=== PATIENT | male | born 1950 | race Caucasian/White ===

== ENCOUNTER → 2016-10-30 | Outpatient (REF) | payer MEDICARE ==
[~2016-10-30] MED LIST: GLUCTAB6 PO; HYDR200T3 PO; LISI30TA4 PO; PREV30CA11 PO; VITA500046 PO
[2016-10-30 16:44] LABS: ALBUMIN 3.6 GM/DL (3.2-5.2); ALBUMIN/GLOBULIN RATIO 1.03 (1.00-1.93); BILIRUBIN,TOTAL 0.5 MG/DL (0.2-1.0); CALCIUM LEVEL 8.8 MG/DL (8.8-10.2); CREATININE FOR GFR 1.38 MG/DL (0.70-1.30); GLOMERULAR FILTRATION RATE 54.5 (>49); POTASSIUM SERUM 4.5 MEQ/L (3.5-5.1); TOTAL PROTEIN 7.1 GM/DL (6.4-8.2)
== END ==
LOC: M LABDRAW1 15:40
PROVIDERS: ATTEND Emergency Medicine
DX: I10 Essential (primary) hypertension (principal); E55.9 Vitamin D deficiency, unspecified

== ENCOUNTER → 2016-11-28 | Outpatient (CLI) | payer MEDICARE ==
[~2016-11-28] VITALS: Ht 172.7 cm; Wt 76.2 kg
[~2016-11-28] MED LIST changes: +ALLO100T PO; +LIDOCAINE 2% INJ 100 MG/5 ML SDV (FOR ANES.) As Ordered ONE; +MULT1TAB18 PO; +PHENYLephrine HCL 500 MCG/5 ML (100MCG/ML) SYRINGE (J2370) As Ordered ONE; +PROPOFOL 200 MG/20 ML VIAL As Ordered ONE; +VITA-113 SL
[2016-11-28] MEDS: NS 1,000 ML IV SCH (09:09)
--- NOTE | 2016-11-28 09:40 | ROOR ---
Patient Name: Ben Domingo Procedure Date: 11/28/2016 9:26 AM Date of : 1950 Age: 66 Room: [facility] Gender: Male Note Status: Finalized Procedure: Upper GI endoscopy + Biopsies Indications: Follow-up of Hernandez's esophagus Providers: Aldo Davila MD Referring MD: PALMA MANDEL MD Requesting Provider: Medicines: Monitored Anesthesia Care Complications: No immediate complications. Procedure: Pre-Anesthesia Assessment: - The heart rate, respiratory rate, oxygen saturations, blood pressure, adequacy of pulmonary ventilation, and response to care were monitored throughout the procedure. The Endoscope was introduced through the mouth, and advanced to the second part of duodenum. The upper GI endoscopy was accomplished without difficulty. The patient tolerated the procedure well. Findings: The Z-line was variable and was found 40 cm from the incisors. Multiple biopsies were obtained with cold forceps for evaluation to rule out Hernandez's Esophagus randomly at the gastroesophageal junction. A small hiatal hernia was present. No other significant abnormalities were identified in a careful examination of the stomach. The exam of the duodenum was otherwise normal. Impression: - Z-line variable, 40 cm from the incisors. - Small hiatal hernia. - Multiple biopsies were obtained at the gastroesophageal junction. - The examination was otherwise normal. Recommendation: - Patient has a contact number available for emergencies. The signs and symptoms of potential delayed complications were discussed with the patient. Return to normal activities tomorrow. Written discharge instructions were provided to the patient. - High fiber diet. - Discharge patient to home. - Continue present medications. - Await pathology results. - Telephone GI clinic for pathology results in 1 week. - Return to referring physician. - Repeat upper endoscopy in 3 years for surveillance based on pathology results. - The findings and recommendations were discussed with the patient's family. Aldo Davila MD Aldo aDvila MD 11/28/2016 9:39:40 AM This report has been signed electronically. Number of Addenda: 0 Note Initiated On: 11/28/2016 9:26 AM Estimated Blood Loss: Estimated blood loss: none.
--- NOTE | 2016-11-28 09:58 | ROOR ---
Patient Name: Ben Domingo Procedure Date: 11/28/2016 9:26 AM Date of : 1950 Age: 66 Room: [facility] Gender: Male Note Status: Finalized Procedure: Colonoscopy to Cecum + Cold Snare Polypectomy Indications: High risk colon cancer surveillance: Personal history of colonic polyps, Last colonoscopy: 2012 Providers: Aldo Davila MD Referring MD: PALMA MANDEL MD Requesting Provider: Medicines: Monitored Anesthesia Care Complications: No immediate complications. Procedure: Pre-Anesthesia Assessment: - The heart rate, respiratory rate, oxygen saturations, blood pressure, adequacy of pulmonary ventilation, and response to care were monitored throughout the procedure. The Colonoscope was introduced through the anus and advanced to the cecum, identified by appendiceal orifice and ileocecal valve. The colonoscopy was performed without difficulty. The patient tolerated the procedure well. The quality of the bowel preparation was excellent. Findings: The perianal and digital rectal examinations were normal. Non-bleeding internal hemorrhoids were found during retroflexion. The hemorrhoids were small and Grade I (internal hemorrhoids that do not prolapse). Scattered small-mouthed diverticula were found in the recto-sigmoid colon, sigmoid colon and descending colon. A small polyp was found at 60 cm proximal to the anus. The polyp was sessile. The polyp was removed with a cold snare. Resection and retrieval were complete. The exam was otherwise without abnormality on direct and retroflexion views. Impression: - Non-bleeding internal hemorrhoids. - Diverticulosis in the recto-sigmoid colon, in the sigmoid colon and in the descending colon. - One small polyp at 60 cm proximal to the anus, removed with a cold snare. Resected and retrieved. - The examination was otherwise normal on direct and retroflexion views. - The exam was otherwise normal to the cecum. Recommendation: - Patient has a contact number available for emergencies. The signs and symptoms of potential delayed complications were discussed with the patient. Return to normal activities tomorrow. Written discharge instructions were provided to the patient. - High fiber diet. - Discharge patient to home. - Continue present medications. - Await pathology results. - Telephone GI clinic for pathology results in 1 week. - Repeat colonoscopy in 5 years for surveillance based on pathology results. - Return to referring physician. - The findings and recommendations were discussed with the patient's family. Aldo Davila MD Aldo Davila MD 11/28/2016 9:58:17 AM This report has been signed electronically. Number of Addenda: 0 Note Initiated On: 11/28/2016 9:26 AM Estimated Blood Loss: Estimated blood loss: none.
[2016-11-28 10:15] VITALS: BP 156/83
== END ==
LOC: M OPP 08:59
PROVIDERS: ATTEND Internal Medicine Gastroenterology
DX: Z12.11 Encounter for screening for malignant neoplasm of colon (principal); K64.0 First degree hemorrhoids; K57.30 Diverticulosis of large intestine without perforation or abscess without bleeding; D12.4 Benign neoplasm of descending colon; K22.70 Barrett's esophagus without dysplasia; K22.8 Other specified diseases of esophagus; K44.9 Diaphragmatic hernia without obstruction or gangrene; I12.9 Hypertensive chronic kidney disease with stage 1 through stage 4 chronic kidney disease, or unspecified chronic kidney disease; E78.00 Pure hypercholesterolemia, unspecified; M19.90 Unspecified osteoarthritis, unspecified site; N18.3 Chronic kidney disease, stage 3 (moderate); K90.0 Celiac disease; Z87.891 Personal history of nicotine dependence; Z79.899 Other long term (current) drug therapy; Z88.8 Allergy status to other drugs, medicaments and biological substances
CPT/HCPCS: 43239; 45385; 88305; 99156; J2370

== ENCOUNTER → 2017-08-09 | Outpatient (CLI) | payer MEDICARE ==
[~2017-08-09] MED LIST changes: -LIDOCAINE 2% INJ 100 MG/5 ML SDV (FOR ANES.) As Ordered ONE; -PHENYLephrine HCL 500 MCG/5 ML (100MCG/ML) SYRINGE (J2370) As Ordered ONE; +PREV1CAP PO; -PREV30CA11 PO; -PROPOFOL 200 MG/20 ML VIAL As Ordered ONE
[2017-08-09 13:27] LABS: BASO # 0.1 10^3/uL (0.0-0.2); BASO % 0.9 % (0.0-1.0); EOS # 0.2 10^3/uL (0.0-0.50); EOS % 4.2 % (0.0-3.0); IMMATURE GRANULOCYTE % 0.9 % (0-0); LYMPH # 1.1 10^3/uL (1.5-4.5); LYMPH % 19.4 % (24.0-44.0); MEAN CORPUSCULAR HEMOGLOBIN 30.6 pg (27.0-33.0); MEAN CORPUSCULAR HGB CONC 33.8 g/dl (32.0-36.5); MEAN CORPUSCULAR VOLUME 90.5 fl (80.0-96.0); MONO # 0.8 10^3/uL (0.0-0.8); MONO % 13.2 % (0.0-5.0); NEUTROPHILS # 3.5 10^3/uL (1.8-7.7); NEUTROPHILS % 61.4 % (36.0-66.0); PLATELET COUNT, AUTOMATED 130 10^3/uL (150-450); RED CELL DISTRIBUTION WIDTH 15.1 % (11.5-14.5); WHITE BLOOD COUNT 5.7 10^3/uL (4.0-10.0)
[2017-08-09 15:05] LABS: ALBUMIN 3.4 GM/DL (3.2-5.2); CALCIUM LEVEL 9.3 MG/DL (8.8-10.2); CREATININE FOR GFR 1.44 MG/DL (0.70-1.30); GLOMERULAR FILTRATION RATE 51.8 (>49); POTASSIUM SERUM 4.7 MEQ/L (3.5-5.1); URIC ACID 5.2 MG/DL (3.5-7.2)
== END ==
LOC: M SMT 10:16
PROVIDERS: ATTEND Internal Medicine Nephrology
DX: N18.3 Chronic kidney disease, stage 3 (moderate) (principal); M10.9 Gout, unspecified; I10 Essential (primary) hypertension

== ENCOUNTER → 2017-10-18 | Outpatient (REF) | payer MEDICARE ==
[2017-10-18 12:56] LABS: ALBUMIN 3.4 GM/DL (3.2-5.2); ALBUMIN/GLOBULIN RATIO 0.83 (1.00-1.93); ALKALINE PHOSPHATASE 246 U/L (45-117); ALT/SGPT 51 U/L (12-78); ANION GAP 5 MEQ/L (8-16); AST/SGOT 52 U/L (7-37); BILIRUBIN,TOTAL 0.6 MG/DL (0.2-1.0); BLOOD UREA NITROGEN 22 MG/DL (7-18); CALCIUM LEVEL 8.7 MG/DL (8.8-10.2); CARBON DIOXIDE LEVEL 28 MEQ/L (21-32); CHLORIDE LEVEL 108 MEQ/L (98-107); CHOLESTEROL LEVEL 161 MG/DL (<200); CREATININE FOR GFR 1.17 MG/DL (0.70-1.30); GLOMERULAR FILTRATION RATE > 60.0 (>49); GLUCOSE, FASTING 102 MG/DL (80-110); POTASSIUM SERUM 4.1 MEQ/L (3.5-5.1); SODIUM LEVEL 141 MEQ/L (136-145); TOTAL PROTEIN 7.5 GM/DL (6.4-8.2); TRIGLYCERIDES LEVEL 53 MG/DL (<150)
== END ==
LOC: M LABDRAW1 11:11
DX: I10 Essential (primary) hypertension (principal); E55.9 Vitamin D deficiency, unspecified
CPT/HCPCS: 84443

== ENCOUNTER → 2018-11-05 | Outpatient (REF) | payer MEDICARE, OTHER ==
[~2018-11-05] MED LIST changes: +LISI-672 PO; -LISI30TA4 PO
[2018-11-05 12:23] LABS: ALBUMIN 3.5 GM/DL (3.2-5.2); BILIRUBIN,TOTAL 1.2 MG/DL (0.2-1.0); CALCIUM LEVEL 8.8 MG/DL (8.8-10.2); CHOLESTEROL RISK RATIO 4.384 (<5); CREATININE FOR GFR 1.28 MG/DL (0.70-1.30); GLOMERULAR FILTRATION RATE 59.1 (>42); POTASSIUM SERUM 4.3 MEQ/L (3.5-5.1); TOTAL PROTEIN 7.7 GM/DL (6.4-8.2)
[2018-11-05 12:29] LABS: TOTAL 25(OH) VITAMIN D 39.2 NG/ML (30.0-100.0)
== END ==
LOC: M LABDRAW1 11:24
PROVIDERS: ATTEND Physician Assistant
DX: I10 Essential (primary) hypertension (principal); E55.9 Vitamin D deficiency, unspecified

== ENCOUNTER → 2019-01-06 | Outpatient (REF) | payer OTHER ==
[2019-01-06 14:21] LABS: BASO % 0.7 % (0.0-1.0); EOS # 0.2 10^3/uL (0.0-0.50); EOS % 4.3 % (0.0-3.0); HEMOGLOBIN 13.6 g/dl (13.5-17.5); LYMPH # 0.9 10^3/uL (1.5-4.5); LYMPH % 20.8 % (24.0-44.0); MEAN CORPUSCULAR HEMOGLOBIN 32.2 pg (27.0-33.0); MEAN CORPUSCULAR VOLUME 94.8 fl (80.0-96.0); MONO # 0.4 10^3/uL (0.0-0.8); MONO % 9.8 % (0.0-5.0); NEUTROPHILS # 2.8 10^3/uL (1.8-7.7); NEUTROPHILS % 63.5 % (36.0-66.0); RED BLOOD COUNT 4.22 10^6/uL (4.30-6.10); WHITE BLOOD COUNT 4.4 10^3/uL (4.0-10.0)
[2019-01-06 15:11] LABS: PLATELET COUNT, AUTOMATED 85 10^3/uL (150-450)
== END ==
LOC: M LABDRAW1 13:34
PROVIDERS: ATTEND Physician Assistant
DX: K62.5 Hemorrhage of anus and rectum (principal)

== ENCOUNTER → 2019-06-01 | Outpatient (REF) | payer OTHER ==
[2019-06-01 12:41] LABS: ALBUMIN 3.7 GM/DL (3.2-5.2); BILIRUBIN,TOTAL 0.7 MG/DL (0.2-1.0); CALCIUM LEVEL 9.3 MG/DL (8.8-10.2); CREATININE FOR GFR 1.47 MG/DL (0.70-1.30); GLOMERULAR FILTRATION RATE 50.3 (>42); POTASSIUM SERUM 4.8 MEQ/L (3.5-5.1); TOTAL PROTEIN 7.9 GM/DL (6.4-8.2)
== END ==
LOC: M LABDRAW1 10:24
PROVIDERS: ATTEND Physician Assistant
DX: I10 Essential (primary) hypertension (principal)

== ENCOUNTER → 2019-12-09 | Outpatient (REF) | payer OTHER ==
[2019-12-09 14:16] LABS: BASO % 0.9 % (0.0-1.0); EOS # 0.2 10^3/uL (0.0-0.5); EOS % 5.7 % (0.0-3.0); HEMATOCRIT 37.3 % (42.0-52.0); HEMOGLOBIN 12.5 g/dl (13.5-17.5); LYMPH # 0.9 10^3/uL (1.5-5.0); LYMPH % 26.6 % (24.0-44.0); MEAN CORPUSCULAR HGB CONC 33.5 g/dl (32.0-36.5); MEAN CORPUSCULAR VOLUME 95.4 fl (80.0-96.0); MONO # 0.3 10^3/uL (0.0-0.8); NEUTROPHILS # 1.9 10^3/uL (1.5-8.5); NEUTROPHILS % 56.6 % (36.0-66.0); RED BLOOD COUNT 3.91 10^6/uL (4.30-6.10); WHITE BLOOD COUNT 3.4 10^3/uL (4.0-10.0)
[2019-12-09 14:17] LABS: PLATELET COUNT, AUTOMATED 88 10^3/uL (150-450)
[2019-12-09 14:35] LABS: ALBUMIN 3.4 GM/DL (3.2-5.2); BILIRUBIN,TOTAL 1.2 MG/DL (0.2-1.0); CALCIUM LEVEL 8.7 MG/DL (8.8-10.2); CHOLESTEROL RISK RATIO 3.326 (<5); CREATININE FOR GFR 1.27 MG/DL (0.70-1.30); GLOMERULAR FILTRATION RATE 59.5 (>42); POTASSIUM SERUM 4.2 MEQ/L (3.5-5.1); TOTAL PROTEIN 7.7 GM/DL (6.4-8.2); URIC ACID 5.2 MG/DL (3.5-7.2)
[2019-12-09 14:42] LABS: TOTAL 25(OH) VITAMIN D 47.5 NG/ML (30.0-100.0)
== END ==
LOC: M LABDRAW1 13:26
PROVIDERS: ATTEND Physician Assistant
DX: N18.3 Chronic kidney disease, stage 3 (moderate) (principal); E55.9 Vitamin D deficiency, unspecified; I10 Essential (primary) hypertension; M10.9 Gout, unspecified; M05.70 Rheumatoid arthritis with rheumatoid factor of unspecified site without organ or systems involvement

== ENCOUNTER → 2020-07-04 | Outpatient (REF) | payer MEDICARE ==
[~2020-07-04] MED LIST changes: +ATOR40TA75 PO; +CIME300T91 PO; +D31000TA2 PO; +FAMO20TA PO; +FLON1SPR; +FURO20TA2 PO; +HM V5000 PO; +HYDR-3713 PO; -LISI-672 PO; +LISI30TA4 PO; +MONT10TA4 PO; +MULTCAP PO; +PROAAER10 INH; +SPIR12.9 INH
[2020-07-04 18:59] LABS: PERCENT SATURATION 10.8 % (19.7-50.0)
== END ==
LOC: M LAB REF 17:13
PROVIDERS: ATTEND Internal Medicine Nephrology
DX: D50.9 Iron deficiency anemia, unspecified (principal)

== ENCOUNTER → 2020-08-12 | Outpatient (CLI) | payer MEDICARE | LOC: M LABSMTC 10:53 | PROVIDERS: ATTEND Anesthesiology | DX: Z01.818 Encounter for other preprocedural examination (principal); Z20.828 Contact with and (suspected) exposure to other viral communicable diseases | CPT/HCPCS: C9803; U0003 ==

== ENCOUNTER → 2020-08-15 | Outpatient (REF) | payer MEDICARE ==
[2020-08-15 18:20] LABS: PERCENT SATURATION 26.3 % (19.7-50.0)
== END ==
LOC: M LAB REF 17:05
PROVIDERS: ATTEND Internal Medicine Nephrology
DX: D50.9 Iron deficiency anemia, unspecified (principal)

== ENCOUNTER 2020-08-17 09:19 | Day surgery (SDC) | payer MEDICARE ==
[~2020-08-17] VITALS: Ht 172.7 cm; Wt 69.9 kg
[~2020-08-17 09:19] MED LIST changes: +NS 1,000 ML IV ONE
--- NOTE | 2020-08-17 10:17 | ROOR ---
Patient Name: Ben Domingo Procedure Date: 08/17/2020 9:59 AM Date of : 1950 Age: 70 Room: [facility] Gender: Male Note Status: Finalized Procedure: Upper Endoscopy + Biopsies Indications: Iron deficiency anemia, Unexplained iron deficiency anemia Providers: Aldo Davila MD Referring MD: Andreea Arreaga MD Requesting Provider: Medicines: Monitored Anesthesia Care Complications: No immediate complications. Procedure: Pre-Anesthesia Assessment: - The heart rate, respiratory rate, oxygen saturations, blood pressure, adequacy of pulmonary ventilation, and response to care were monitored throughout the procedure. The Endoscope was introduced through the mouth, and advanced to the second part of duodenum. The upper GI endoscopy was accomplished without difficulty. The patient tolerated the procedure well. Findings: The Z-line was irregular and was found 35 cm from the incisors. Multiple biopsies were obtained with cold forceps for evaluation to rule out Hernandez's Esophagus randomly at the gastroesophageal junction. A medium-sized hiatal hernia was present. Three columns of non-bleeding grade II varices were found in the entire esophagus,. No stigmata of recent bleeding were evident and no red philomena signs were present. No other significant abnormalities were identified in a careful examination of the stomach. Biopsies were taken with a cold forceps in the gastric antrum for Helicobacter pylori testing. The exam of the duodenum was otherwise normal. Biopsies for histology were taken with a cold forceps in the first portion of the duodenum for evaluation of celiac disease. The exam was otherwise without abnormality. Impression: - Z-line irregular, 35 cm from the incisors. - Medium-sized hiatal hernia. - Non-bleeding grade II esophageal varices. - The examination was otherwise normal. - Multiple biopsies were obtained at the gastroesophageal junction. - Biopsies were taken with a cold forceps for Helicobacter pylori testing. - Biopsies were taken with a cold forceps for evaluation of celiac disease. - The examination was otherwise normal. Recommendation: - Patient has a contact number available for emergencies. The signs and symptoms of potential delayed complications were discussed with the patient. Return to normal activities tomorrow. Written discharge instructions were provided to the patient. - Resume previous diet. - Discharge patient to home. - Follow an antireflux regimen. - Continue present medications. - Await pathology results. - Telephone GI clinic for pathology results in 1 week. - Return to referring physician. - The findings and recommendations were discussed with the patient. Aldo Davila MD Aldo Davila MD 08/17/2020 10:16:39 AM Electronically signed by Aldo Davila MD Number of Addenda: 0 Note Initiated On: 08/17/2020 9:59 AM Estimated Blood Loss: Estimated blood loss: none.
--- NOTE | 2020-08-17 10:53 | ROOR ---
Patient Name: Ben Domingo Procedure Date: 08/17/2020 10:00 AM Date of : 1950 Age: 70 Room: [facility] Gender: Male Note Status: Finalized Procedure: Total Colonoscopy to Cecum + Cold Snare Polypectomy + Hemoclip Indications: Unexplained iron deficiency anemia Providers: Aldo Davila MD Referring MD: Andreea Arreaga MD Requesting Provider: Medicines: Monitored Anesthesia Care Complications: No immediate complications. Procedure: Pre-Anesthesia Assessment: - The heart rate, respiratory rate, oxygen saturations, blood pressure, adequacy of pulmonary ventilation, and response to care were monitored throughout the procedure. The Colonoscope was introduced through the anus and advanced to the cecum, identified by appendiceal orifice and ileocecal valve. The colonoscopy was performed without difficulty. The patient tolerated the procedure well. The quality of the bowel preparation was excellent. Findings: The perianal and digital rectal examinations were normal. Non-bleeding internal hemorrhoids were found during retroflexion. The hemorrhoids were small and Grade I (internal hemorrhoids that do not prolapse). Multiple small and large-mouthed diverticula were found in the recto-sigmoid colon, sigmoid colon and descending colon. A medium polyp was found at 60 cm proximal to the anus. The polyp was sessile. The polyp was removed with a cold snare. Resection and retrieval were complete. To prevent bleeding after the polypectomy, one hemostatic clip was successfully placed (MR conditional). There was no bleeding at the end of the procedure. The exam was otherwise without abnormality on direct and retroflexion views. Impression: - Non-bleeding internal hemorrhoids. - Diverticulosis in the recto-sigmoid colon, in the sigmoid colon and in the descending colon. - One medium polyp at 60 cm proximal to the anus, removed with a cold snare. Resected and retrieved. Clip (MR conditional) was placed. - The examination was otherwise normal on direct and retroflexion views. - The exam was otherwise normal to the cecum. Recommendation: - Patient has a contact number available for emergencies. The signs and symptoms of potential delayed complications were discussed with the patient. Return to normal activities tomorrow. Written discharge instructions were provided to the patient. - High fiber diet. - Discharge patient to home. - Continue present medications. - Await pathology results. - Telephone GI clinic for pathology results in 1 week. - Repeat colonoscopy for surveillance based on pathology results. - Return to referring physician. - The findings and recommendations were discussed with the patient. Aldo Davila MD Aldo Davila MD 08/17/2020 10:52:25 AM Electronically signed by Aldo Davila MD Number of Addenda: 0 Note Initiated On: 08/17/2020 10:00 AM Estimated Blood Loss: Estimated blood loss: none.
[2020-08-17] MEDS ORDERED: propofoL 200 MG/20 ML VIAL As Ordered ONE (10:55)
[2020-08-17] MEDS ORDERED: LIDOCAINE 2% 100MG/5ML SDV (FOR ANES.) As Ordered ONE (10:55)
[2020-08-17 11:15] VITALS: BP 122/56
== END 2020-08-17 11:55 | disposition home or self-care (01) ==
LOC: M OPP 09:19
PROVIDERS: ATTEND Internal Medicine Gastroenterology
DX: D12.2 Benign neoplasm of ascending colon (principal); K64.0 First degree hemorrhoids; K57.30 Diverticulosis of large intestine without perforation or abscess without bleeding; D50.9 Iron deficiency anemia, unspecified; Z86.010 Personal history of colon polyps; K22.8 Other specified diseases of esophagus; K44.9 Diaphragmatic hernia without obstruction or gangrene; I85.00 Esophageal varices without bleeding; Z87.19 Personal history of other diseases of the digestive system; Z79.891 Long term (current) use of opiate analgesic; Z79.899 Other long term (current) drug therapy; Z88.8 Allergy status to other drugs, medicaments and biological substances; F17.210 Nicotine dependence, cigarettes, uncomplicated

== ENCOUNTER → 2020-09-22 | Outpatient (CLI) | payer MEDICARE ==
[~2020-09-22] MED LIST changes: -MONT10TA4 PO; +MONT5TAB2 PO; -NS 1,000 ML IV ONE
[2020-09-22 15:08] LABS: BASO % 0.6 % (0.0-1.0); EOS # 0.2 10^3/uL (0.0-0.5); EOS % 4.1 % (0.0-3.0); HEMATOCRIT 35.6 % (42.0-52.0); HEMOGLOBIN 11.8 g/dl (13.5-17.5); LYMPH % 21.6 % (24.0-44.0); MEAN CORPUSCULAR HEMOGLOBIN 32.6 pg (27.0-33.0); MEAN CORPUSCULAR HGB CONC 33.1 g/dl (32.0-36.5); MEAN CORPUSCULAR VOLUME 98.3 fl (80.0-96.0); MONO # 0.6 10^3/uL (0.0-0.8); MONO % 13.2 % (0.0-5.0); NEUTROPHILS # 2.8 10^3/uL (1.5-8.5); NEUTROPHILS % 60.1 % (36.0-66.0); PLATELET COUNT, AUTOMATED 100 10^3/uL (150-450); RED BLOOD COUNT 3.62 10^6/uL (4.30-6.10); WHITE BLOOD COUNT 4.6 10^3/uL (4.0-10.0)
[2020-09-22 17:18] LABS: CALCIUM LEVEL 9.1 MG/DL (8.8-10.2); CREATININE FOR GFR 2.54 MG/DL (0.70-1.30); GLOMERULAR FILTRATION RATE 26.7 (>42); POTASSIUM SERUM 4.6 MEQ/L (3.5-5.1)
[2020-09-22 17:19] LABS: BILIRUBIN,TOTAL 0.9 MG/DL (0.2-1.0); TOTAL PROTEIN 7.5 GM/DL (6.4-8.2)
== END ==
LOC: M PLALAB 11:26
PROVIDERS: ATTEND Internal Medicine Gastroenterology
DX: D64.89 Other specified anemias (principal)

== ENCOUNTER 2020-10-27 16:31 | Emergency (ER) | payer MEDICARE ==
[~2020-10-27] VITALS: Ht 175.3 cm; Wt 70.5 kg
[~2020-10-27 16:31] MED LIST changes: +MONT10TA10 PO; -MONT5TAB2 PO
--- NOTE | 2020-10-27 19:48 | REP ---
INDICATION: wpund with swelling, concern for osteo COMPARISON: None. TECHNIQUE: AP, lateral, bilateral oblique views. FINDINGS: Soft tissue swelling with suspected open wound along the lateral aspect of the distal fibula. Osseous structures demonstrate osteopenia and degenerative changes without obvious acute fracture or dislocation. IMPRESSION: Soft tissue swelling with open wound/ulcer. No obvious acute fracture or dislocation. <Electronically signed by Moises Tenorio > 10/27/201943
--- NOTE | 2020-10-27 19:49 | REP ---
INDICATION: wound with swelling, concern for osteo COMPARISON: None. TECHNIQUE: AP and lateral views of the left tibia/fibula. FINDINGS: Osteopenia and arthritic degenerative changes. No obvious acute fracture or dislocation. IMPRESSION: Osteopenia and degenerative changes. No acute fracture or dislocation. <Electronically signed by Moises Tenorio > 10/27/201945
[2020-10-27 20:10] LABS: BASO % 0.8 % (0.0-1.0); EOS # 0.2 10^3/uL (0.0-0.5); EOS % 4.3 % (0.0-3.0); HEMOGLOBIN 11.3 g/dl (13.5-17.5); LYMPH # 1.2 10^3/uL (1.5-5.0); LYMPH % 24.5 % (24.0-44.0); MEAN CORPUSCULAR HEMOGLOBIN 32.9 pg (27.0-33.0); MEAN CORPUSCULAR HGB CONC 33.2 g/dl (32.0-36.5); MEAN CORPUSCULAR VOLUME 99.1 fl (80.0-96.0); MONO # 0.5 10^3/uL (0.0-0.8); MONO % 10.2 % (0.0-5.0); NEUTROPHILS # 2.9 10^3/uL (1.5-8.5); NEUTROPHILS % 59.4 % (36.0-66.0); RED BLOOD COUNT 3.43 10^6/uL (4.30-6.10); WHITE BLOOD COUNT 4.9 10^3/uL (4.0-10.0)
[2020-10-27 20:14] LABS: PLATELET COUNT, AUTOMATED 92 10^3/uL (150-450)
[2020-10-27 20:37] LABS: ALBUMIN 3.2 GM/DL (3.2-5.2); BILIRUBIN,DIRECT 0.4 MG/DL (0.0-0.2); BILIRUBIN,TOTAL 1.3 MG/DL (0.2-1.0); C REACTIVE PROTEIN QUANTITATIV 0.81 MG/DL (0.00-0.30); TOTAL PROTEIN 7.5 GM/DL (6.4-8.2)
[2020-10-27 20:43] LABS: ERYTHROCYTE SEDIMENTATION RATE 63 mm/hr (0-20)
[2020-10-27] MEDS ORDERED: KEFL500C17 PO (20:43)
[2020-10-27] MEDS ORDERED: cefTRIAXone SOD 1 GM in D5W MINI-BAG PLUS 50 ML IV ONE (20:45)
[2020-10-27 21:48] VITALS: BP 144/66
== END 2020-10-27 21:49 | disposition home or self-care (01) ==
LOC: M ED 16:31
DX: L03.116 Cellulitis of left lower limb (principal); L98.499 Non-pressure chronic ulcer of skin of other sites with unspecified severity; J45.909 Unspecified asthma, uncomplicated; I12.9 Hypertensive chronic kidney disease with stage 1 through stage 4 chronic kidney disease, or unspecified chronic kidney disease; N18.30 Chronic kidney disease, stage 3 unspecified; M10.9 Gout, unspecified; R91.1 Solitary pulmonary nodule; K22.70 Barrett's esophagus without dysplasia; Z79.899 Other long term (current) drug therapy; Z88.8 Allergy status to other drugs, medicaments and biological substances
CPT/HCPCS: 73590; 73610; 80047; 80076; 85025; 85049; 85055; 85652; 86140; 87040; 96365; 99283; J0696

== ENCOUNTER → 2020-12-12 | Outpatient (CLI) | payer MEDICARE ==
[~2020-12-12] MED LIST changes: +KEFL500C17 PO
--- NOTE | 2020-12-12 17:11 | REP ---
INDICATION: [id number] MASS UNDER LEFT NIPPLE. Present for the last 3-4 weeks. COMPARISON: No comparison breast imaging. TECHNIQUE: Bilateral CC and MLO) view(s) were taken. 3D tomography was carried out bilaterally. Targeted bilateral subareolar breast sonography was performed. FINDINGS: Craniocaudal and mediolateral oblique views of the left breast demonstrate a gynecomastia pattern with mild amount of of fibroglandular density in the subareolar zone on the left. No masslike properties are seen. No microcalcification or spiculation is noted. No worrisome skin change. No abnormality noted radiographically on the right. Targeted subareolar sonography findings. Bilateral retroareolar scanning is performed. In the subareolar region of the left breast there is a hypoechoic area consistent with irregular margins consistent with fibroglandular tissue. No mass or acoustic shadowing is seen. The area in question measures 1.9 x 1.3 x 0.6 cm. Subareolar scanning on the right shows no abnormality. IMPRESSION: BI-RADS category 2 benign findings. Unilateral mild left-sided gynecomastia. Clinical follow-up is advised. This mammogram was interpreted with the aid of an FDA-approved computer-aided detection system. The patient states he had a clinical breast exam in November of 2020. The patient letter being requested is male patient letter M 2. RECOMMENDATION: Clinical follow-up is advised.. <Electronically signed by Adonay Spencer > 12/12/20 0037
== END ==
LOC: M WHC 14:20
PROVIDERS: ATTEND Nurse Practitioner Family
DX: N62 Hypertrophy of breast (principal); R22.2 Localized swelling, mass and lump, trunk
CPT/HCPCS: 76642; 77066; G0279

== ENCOUNTER → 2021-01-23 | Outpatient (CLI) | payer MEDICARE ==
--- NOTE | 2021-01-23 19:11 | REP ---
INDICATION: Cirrhosis of the liver. COMPARISON: 04/09/2007. TECHNIQUE: CT abdomen and pelvis without contrast. FINDINGS: This is an addendum to the CT performed at [facility] dated 12/15/2020. In the body of the report there is typographical error stating that there is ascites. There is in fact no ascites present in the abdomen or pelvis. IMPRESSION: No ascites present in the abdomen or pelvis. <Electronically signed by Rodrigue Villatoro > 01/23/21 0760
== END ==
LOC: M RAD 14:06
PROVIDERS: ATTEND Internal Medicine Gastroenterology
DX: K74.60 Unspecified cirrhosis of liver (principal)

== ENCOUNTER → 2021-07-18 | Outpatient (CLI) | payer MEDICARE ==
[2021-07-18 15:16] LABS: BASO % 0.7 % (0.0-1.0); EOS # 0.2 10^3/uL (0.0-0.5); EOS % 5.4 % (0.0-3.0); HEMATOCRIT 31.1 % (42.0-52.0); HEMOGLOBIN 10.7 g/dl (13.5-17.5); LYMPH # 1.1 10^3/uL (1.5-5.0); LYMPH % 28.1 % (24.0-44.0); MEAN CORPUSCULAR HEMOGLOBIN 34.9 pg (27.0-33.0); MEAN CORPUSCULAR HGB CONC 34.4 g/dl (32.0-36.5); MEAN CORPUSCULAR VOLUME 101.3 fl (80.0-96.0); MONO # 0.4 10^3/uL (0.0-0.8); MONO % 8.6 % (2.0-8.0); NEUTROPHILS # 2.3 10^3/uL (1.5-8.5); PLATELET COUNT, AUTOMATED 100 10^3/uL (150-450); RED BLOOD COUNT 3.07 10^6/uL (4.30-6.10); WHITE BLOOD COUNT 4.1 10^3/uL (4.0-10.0)
[2021-07-18 15:47] LABS: ALBUMIN 2.8 GM/DL (3.2-5.2); BILIRUBIN,TOTAL 1.4 MG/DL (0.2-1.0); CALCIUM LEVEL 8.5 MG/DL (8.8-10.2); CHOLESTEROL RISK RATIO 2.313 (<5); CREATININE FOR GFR 1.32 MG/DL (0.70-1.30); GLOMERULAR FILTRATION RATE 56.6 (>42); POTASSIUM SERUM 3.9 MEQ/L (3.5-5.1); TOTAL PROTEIN 7.1 GM/DL (6.4-8.2)
== END ==
LOC: M PLALAB 13:23
PROVIDERS: ATTEND Nurse Practitioner Family
DX: M05.70 Rheumatoid arthritis with rheumatoid factor of unspecified site without organ or systems involvement (principal); I10 Essential (primary) hypertension

== ENCOUNTER → 2021-09-04 | Outpatient (CLI) | payer MEDICARE ==
[2021-09-04 17:39] LABS: BASO % 0.6 % (0.0-1.0); EOS # 0.3 10^3/uL (0.0-0.5); EOS % 6.4 % (0.0-3.0); HEMATOCRIT 32.8 % (42.0-52.0); HEMOGLOBIN 11.5 g/dl (13.5-17.5); LYMPH # 1.6 10^3/uL (1.5-5.0); LYMPH % 29.8 % (24.0-44.0); MEAN CORPUSCULAR HEMOGLOBIN 34.8 pg (27.0-33.0); MEAN CORPUSCULAR HGB CONC 35.1 g/dl (32.0-36.5); MEAN CORPUSCULAR VOLUME 99.4 fl (80.0-96.0); MONO # 0.5 10^3/uL (0.0-0.8); MONO % 9.4 % (2.0-8.0); NEUTROPHILS # 2.9 10^3/uL (1.5-8.5); NEUTROPHILS % 53.4 % (36.0-66.0); WHITE BLOOD COUNT 5.3 10^3/uL (4.0-10.0)
[2021-09-04 18:12] LABS: ALBUMIN 2.5 GM/DL (3.2-5.2); BILIRUBIN,TOTAL 1.5 MG/DL (0.2-1.0); CALCIUM LEVEL 9.4 MG/DL (8.8-10.2); CREATININE FOR GFR 1.31 MG/DL (0.70-1.30); GLOMERULAR FILTRATION RATE 57.1 (>42); MAGNESIUM LEVEL 1.2 MG/DL (1.8-2.4); POTASSIUM SERUM 3.8 MEQ/L (3.5-5.1); THYROID STIMULATING HORMONE 0.436 uIU/ML (0.358-3.740)
[2021-09-04 22:01] LABS: ERYTHROCYTE SEDIMENTATION RATE 63 mm/hr (0-20)
== END ==
LOC: M PLALAB 15:03
PROVIDERS: ATTEND Internal Medicine Cardiovascular Disease
DX: I49.3 Ventricular premature depolarization (principal); R06.02 Shortness of breath; I35.9 Nonrheumatic aortic valve disorder, unspecified

== ENCOUNTER → 2021-09-07 | Outpatient (CLI) | payer MEDICARE ==
--- NOTE | 2021-09-07 10:02 | REPVR ---
PROCEDURE INFORMATION: Exam: MR Lumbar Spine Without Contrast Exam date and time: 09/07/2021 8:50 AM Age: 71 years old Clinical indication: Low back pain TECHNIQUE: Imaging protocol: Multiplanar magnetic resonance images of the lumbar spine without intravenous contrast. COMPARISON: No relevant prior studies available. FINDINGS: Vertebrae: Vertebral heights are maintained. Mild levoscoliosis of the lumbar spine. Spinal cord: Normal signal. No cord compression. L1-L2: Mild loss of disc space with disc desiccation, bilateral facet joint arthropathy and ligamentum flavum hypertrophy without any significant central spinal canal stenosis. Moderate to severe bilateral neural foraminal narrowing, right greater than left. L2-L3: Moderate loss of disc space, diffuse disc bulge with bilateral facet joint arthropathy and ligamentum flavum hypertrophy causing mild indentation on thecal sac, moderate to severe right and severe left neural foraminal narrowing with impingement on the exiting left L2 nerve roots. L3-L4: Moderate loss of disc space, diffuse disc bulge with bilateral facet joint arthropathy and ligamentum flavum hypertrophy causing mild indentation on thecal sac, moderate right neural foraminal narrowing with abutment of exiting right L3 nerve roots. Moderate left neural foraminal narrowing. L4-L5: Loss of disc space, disc desiccation, diffuse disc bulge with bilateral facet joint arthropathy and ligamentum flavum hypertrophy without any significant central spinal canal stenosis. Mild left and moderate right neural foraminal narrowing. L5-S1: Diffuse disc bulge with small central disc protrusion and small left subarticular disc protrusion, annular fissure, facet joint arthropathy and ligamentum flavum hypertrophy without any significant central spinal canal stenosis or right neural foraminal narrowing. Mild to moderate left neural foraminal narrowing with abutment of exiting left L5 nerve root. Soft tissues: Unremarkable. IMPRESSION: No acute fracture or traumatic subluxation. Multilevel degenerative changes as described in detail above. Please see above dictation for individual levels. Electronically signed by: Magy Shepherd On 09/07/2021 10:02:08 AM
== END ==
LOC: M PLAIMG 08:00
PROVIDERS: ATTEND Physician Assistant
DX: M48.061 Spinal stenosis, lumbar region without neurogenic claudication (principal); M51.26 Other intervertebral disc displacement, lumbar region; M51.27 Other intervertebral disc displacement, lumbosacral region; M51.36 Other intervertebral disc degeneration, lumbar region; M51.37 Other intervertebral disc degeneration, lumbosacral region; M48.07 Spinal stenosis, lumbosacral region; R19.7 Diarrhea, unspecified

== ENCOUNTER → 2021-09-07 | Outpatient (REF) | payer MEDICARE | LOC: M LAB REF 16:49 | PROVIDERS: ATTEND Nurse Practitioner Family | DX: R19.7 Diarrhea, unspecified (principal) ==

== ENCOUNTER → 2021-10-06 | Outpatient (REF) | payer MEDICARE ==
[~2021-10-06] MED LIST changes: -MONT10TA10 PO; +MONT10TA97 PO
== END ==
LOC: M LAB REF 17:14
PROVIDERS: ATTEND Nurse Practitioner Family
DX: R19.7 Diarrhea, unspecified (principal)

== ENCOUNTER → 2021-11-15 | Outpatient (CLI) | payer MEDICARE ==
[2021-11-15 15:24] LABS: BASO # 0.1 10^3/uL (0.0-0.2); BASO % 0.9 % (0.0-1.0); EOS # 0.2 10^3/uL (0.0-0.5); EOS % 2.9 % (0.0-3.0); HEMATOCRIT 32.5 % (42.0-52.0); LYMPH # 1.9 10^3/uL (1.5-5.0); LYMPH % 24.3 % (24.0-44.0); MEAN CORPUSCULAR HEMOGLOBIN 34.8 pg (27.0-33.0); MEAN CORPUSCULAR HGB CONC 33.8 g/dl (32.0-36.5); MEAN CORPUSCULAR VOLUME 102.8 fl (80.0-96.0); MONO # 0.8 10^3/uL (0.0-0.8); MONO % 10.5 % (2.0-8.0); NEUTROPHILS # 4.8 10^3/uL (1.5-8.5); PLATELET COUNT, AUTOMATED 130 10^3/uL (150-450); RED BLOOD COUNT 3.16 10^6/uL (4.30-6.10); WHITE BLOOD COUNT 7.9 10^3/uL (4.0-10.0)
[2021-11-15 15:52] LABS: ALBUMIN 2.3 GM/DL (3.2-5.2); CALCIUM LEVEL 9.1 MG/DL (8.8-10.2); CREATININE FOR GFR 1.5 MG/DL (0.70-1.30); GLOMERULAR FILTRATION RATE 48.8 (>42); POTASSIUM SERUM 3.7 MEQ/L (3.5-5.1)
== END ==
LOC: M PLALAB 13:31
PROVIDERS: ATTEND Nurse Practitioner Family
DX: E87.6 Hypokalemia (principal); N18.30 Chronic kidney disease, stage 3 unspecified; I49.3 Ventricular premature depolarization

== ENCOUNTER → 2021-11-15 | Outpatient (CLI) | payer MEDICARE | LOC: M PLALAB 13:34 | PROVIDERS: ATTEND Physician Assistant | DX: I49.3 Ventricular premature depolarization (principal) ==

== ENCOUNTER → 2021-12-13 | Outpatient (CLI) | payer MEDICARE | LOC: M PLAIMG 14:40 | PROVIDERS: ATTEND Nurse Practitioner Family | DX: J44.9 Chronic obstructive pulmonary disease, unspecified (principal) ==

== ENCOUNTER → 2021-12-19 | Outpatient (REF) | payer MEDICARE ==
[~2021-12-19] MED LIST changes: -D31000TA2 PO; +VITA100093 PO
[2021-12-19 17:56] LABS: INR 1.15; PROTHROMBIN TIME 15.1 SECONDS (12.7-14.5)
== END ==
LOC: M LAB REF 16:58
PROVIDERS: ATTEND Internal Medicine Gastroenterology
DX: K74.60 Unspecified cirrhosis of liver (principal)

== ENCOUNTER 2022-03-01 16:09 | Observation (INO) | payer MEDICARE ==
[~2022-03-01] VITALS: Ht 172.7 cm; Wt 48.5 kg
[2022-03-01] MEDS: NS 1,000 ML IV SCH ×2 (01:09→19:04)
[~2022-03-01 16:09] MED LIST changes: -ALLO300T2 PO; -CARV6.25 PO; -COLA100C5 PO; -DICY10CA13 PO; -FERR325T19 PO; -FLUT1BLS6 INH; -MED NOTE; -MIRA1POW3 PO; -ONDA-83 PO; -PANT40TA29 PO; -SPIR-10 PO
[2022-03-01] MEDS ORDERED: SPIR-10 PO (16:26)
[2022-03-01] MEDS ORDERED: CARV6.25 PO (16:26)
[2022-03-01] MEDS ORDERED: FERR325T19 PO (16:26)
[2022-03-01] MEDS ORDERED: METOCLOPRAMIDE INJ 10MG/2ML VIAL (J2765 PER 1) IV ONE (17:00)
[2022-03-01 17:49] LABS: BASO # 0.1 10^3/uL (0.0-0.2); BASO % 0.8 % (0.0-1.0); EOS # 0.2 10^3/uL (0.0-0.5); EOS % 2.5 % (0.0-3.0); HEMATOCRIT 34.2 % (42.0-52.0); LYMPH # 1.7 10^3/uL (1.5-5.0); LYMPH % 28.6 % (24.0-44.0); MEAN CORPUSCULAR HEMOGLOBIN 35.6 pg (27.0-33.0); MEAN CORPUSCULAR HGB CONC 35.1 g/dl (32.0-36.5); MEAN CORPUSCULAR VOLUME 101.5 fl (80.0-96.0); MONO # 0.8 10^3/uL (0.0-0.8); MONO % 12.7 % (2.0-8.0); NEUTROPHILS # 3.2 10^3/uL (1.5-8.5); NEUTROPHILS % 55.1 % (36.0-66.0); PLATELET COUNT, AUTOMATED 141 10^3/uL (150-450); RED BLOOD COUNT 3.37 10^6/uL (4.30-6.10); WHITE BLOOD COUNT 5.9 10^3/uL (4.0-10.0)
[2022-03-01 18:13] LABS: ALBUMIN 2.9 GM/DL (3.2-5.2); BILIRUBIN,DIRECT 0.5 MG/DL (0.0-0.2); BILIRUBIN,TOTAL 1.6 MG/DL (0.2-1.0); CALCIUM LEVEL 9.4 MG/DL (8.8-10.2); CREATININE FOR GFR 2.3 MG/DL (0.70-1.30); GLOMERULAR FILTRATION RATE 29.7 (>42); POTASSIUM SERUM 4.3 MEQ/L (3.5-5.1)
[2022-03-01] MEDS ORDERED: ISOVUE-370 76% 100ML VIAL As Ordered ONE (18:39)
[2022-03-01] MEDS ORDERED: NS 500 ML IV ONE (18:50)
[2022-03-01] MEDS: GASTROGRAFIN SOLUTION 30ML PO SCH ×2 (19:03→19:35)
[2022-03-01] MEDS ORDERED: MAGNESIUM CITRATE 300 ML BTL PO ONE (21:55)
[2022-03-01] MEDS ORDERED: ACETAMINOPHEN *IV* 1,000 MG in IV 1 EA IV ONE (23:00)
[2022-03-01] MEDS ORDERED: ONDANSETRON 4MG/2ML VIAL IV PRN (23:00)
[2022-03-01] MEDS ORDERED: FLEET ENEMA PR PRN (23:00)
[2022-03-01] MEDS ORDERED: MAALOX 30 ML SUSP *UDC PO PRN (23:00)
[2022-03-02] MEDS: MOM 30ML SUSPENSION UDC PO PRN ×2 (00:02→09:15)
[2022-03-02] MEDS: LACTULOSE 20 GM/30 ML SYRUP UD PO PRN ×2 (00:02→09:15)
[2022-03-02 02:10] LABS: RSV AMPLIFICATION NEGATIVE (NEGATIVE)
[2022-03-02] MEDS: NS 1,000 ML IV SCH ×2 (03:00→13:36)
[2022-03-02 06:00] VITALS: BP 123/61
[2022-03-02] MEDS: ACETAMINOPHEN TAB 650MG DOSE (2X325MG) PO PRN ×2 (06:39→19:41)
[2022-03-02 06:50] LABS: HEMATOCRIT 34.1 % (42.0-52.0); HEMOGLOBIN 11.4 g/dl (13.5-17.5); MEAN CORPUSCULAR HEMOGLOBIN 35.2 pg (27.0-33.0); MEAN CORPUSCULAR HGB CONC 33.4 g/dl (32.0-36.5); MEAN CORPUSCULAR VOLUME 105.2 fl (80.0-96.0); PLATELET COUNT, AUTOMATED 137 10^3/uL (150-450); RED BLOOD COUNT 3.24 10^6/uL (4.30-6.10); WHITE BLOOD COUNT 7.4 10^3/uL (4.0-10.0)
[2022-03-02 07:05] LABS: CALCIUM LEVEL 9.4 MG/DL (8.8-10.2); CREATININE FOR GFR 1.98 MG/DL (0.70-1.30); GLOMERULAR FILTRATION RATE 35.4 (>42); MAGNESIUM LEVEL 1.9 MG/DL (1.8-2.4); POTASSIUM SERUM 4.5 MEQ/L (3.5-5.1)
[2022-03-02] MEDS ORDERED: FLUT1BLS6 INH (08:21)
[2022-03-02] MEDS ORDERED: PANT40TA29 PO (08:21)
[2022-03-02] MEDS ORDERED: ALLO300T2 PO (08:21)
[2022-03-02] MEDS ORDERED: FURO20TA2 PO (08:21)
[2022-03-02] MEDS ORDERED: MONT10TA97 PO (08:24)
[2022-03-02] MEDS ORDERED: DICY10CA13 PO (08:28)
[2022-03-02] MEDS ORDERED: ONDA-83 PO (08:28)
[2022-03-02] MEDS ORDERED: HOME MED LIST COMPLETE! XX SCH (08:30)
[2022-03-02] MEDS ORDERED: MED NOTE (08:30)
[2022-03-02] MEDS: DOCUSATE SODIUM 100MG CAPSULE PO SCH ×2 (09:15→20:24)
[2022-03-02] MEDS: MIRALAX *UNIT DOSE* 17GM PACKET PO SCH (09:15)
[2022-03-02 14:00] VITALS: BP 103/89
[2022-03-02] MEDS: PANTOPRAZOLE 40MG TAB (PROTONIX) PO SCH (14:22)
[2022-03-02] MEDS: TIOTROPIUM INHALER/CAPSULE (SPIRIVA) INH SCH (15:28)
[2022-03-02] MEDS: CARVedilol 6.25 MG TAB PO SCH (20:25)
[2022-03-02 21:32] VITALS: BP 126/56
[2022-03-02] MEDS: SYMBICORT 160/4.5MCG INHALER 6GM INH SCH (21:33)
[2022-03-03 06:00] VITALS: BP 122/61
[2022-03-03] MEDS: TIOTROPIUM INHALER/CAPSULE (SPIRIVA) INH SCH (07:25)
[2022-03-03] MEDS: SYMBICORT 160/4.5MCG INHALER 6GM INH SCH (07:25)
[2022-03-03] MEDS: ACETAMINOPHEN TAB 650MG DOSE (2X325MG) PO PRN (08:06)
[2022-03-03 08:07] VITALS: BP 122/61
[2022-03-03] MEDS: CARVedilol 6.25 MG TAB PO SCH (08:07)
[2022-03-03] MEDS: PANTOPRAZOLE 40MG TAB (PROTONIX) PO SCH (08:07)
[2022-03-03] MEDS: DOCUSATE SODIUM 100MG CAPSULE PO SCH (08:07)
[2022-03-03] MEDS: MIRALAX *UNIT DOSE* 17GM PACKET PO SCH (08:07)
[2022-03-03] MEDS ORDERED: NS 1,000 ML IV SCH (08:25)
[2022-03-03 11:13] LABS: BASO % 0.5 % (0.0-1.0); EOS # 0.3 10^3/uL (0.0-0.5); EOS % 4.4 % (0.0-3.0); HEMATOCRIT 29.2 % (42.0-52.0); HEMOGLOBIN 9.8 g/dl (13.5-17.5); LYMPH # 1.4 10^3/uL (1.5-5.0); LYMPH % 24.4 % (24.0-44.0); MEAN CORPUSCULAR HGB CONC 33.6 g/dl (32.0-36.5); MEAN CORPUSCULAR VOLUME 104.3 fl (80.0-96.0); MONO # 0.6 10^3/uL (0.0-0.8); MONO % 11.1 % (2.0-8.0); NEUTROPHILS # 3.4 10^3/uL (1.5-8.5); NEUTROPHILS % 59.3 % (36.0-66.0); PLATELET COUNT, AUTOMATED 105 10^3/uL (150-450); WHITE BLOOD COUNT 5.7 10^3/uL (4.0-10.0)
[2022-03-03 11:36] LABS: ALBUMIN 2.2 GM/DL (3.2-5.2); CALCIUM LEVEL 8.3 MG/DL (8.8-10.2); CREATININE FOR GFR 1.49 MG/DL (0.70-1.30); GLOMERULAR FILTRATION RATE 49.1 (>42); MAGNESIUM LEVEL 2.1 MG/DL (1.8-2.4); POTASSIUM SERUM 3.4 MEQ/L (3.5-5.1); TOTAL PROTEIN 6.4 GM/DL (6.4-8.2)
[2022-03-03] MEDS ORDERED: POTASSIUM CHLORIDE 10MEQ SR TABLET PO ONE (12:10)
[2022-03-03] MEDS ORDERED: COLA100C5 PO (15:13)
[2022-03-03] MEDS ORDERED: SPIR-10 PO (15:13)
[2022-03-03] MEDS ORDERED: MIRA1POW3 PO (15:13)
== END 2022-03-03 16:25 | disposition home health service (06) ==
LOC: M ED 16:09 → M ED INP 16:10 → ENRESERV 03-02 02:56 → M MS5PR 03-02 05:30
PROVIDERS: ADMIT Internal Medicine; ATTEND Internal Medicine
DX: N17.9 Acute kidney failure, unspecified (principal); N18.9 Chronic kidney disease, unspecified; K59.09 Other constipation; E43 Unspecified severe protein-calorie malnutrition; R64 Cachexia; Z87.19 Personal history of other diseases of the digestive system; J45.909 Unspecified asthma, uncomplicated; E80.6 Other disorders of bilirubin metabolism; M10.9 Gout, unspecified; M06.9 Rheumatoid arthritis, unspecified; L89.159 Pressure ulcer of sacral region, unspecified stage; L97.929 Non-pressure chronic ulcer of unspecified part of left lower leg with unspecified severity; I12.9 Hypertensive chronic kidney disease with stage 1 through stage 4 chronic kidney disease, or unspecified chronic kidney disease; M05.10 Rheumatoid lung disease with rheumatoid arthritis of unspecified site; K22.70 Barrett's esophagus without dysplasia; N40.0 Benign prostatic hyperplasia without lower urinary tract symptoms; K76.6 Portal hypertension; Z79.899 Other long term (current) drug therapy; Z79.891 Long term (current) use of opiate analgesic; Z88.8 Allergy status to other drugs, medicaments and biological substances; Z87.891 Personal history of nicotine dependence
CPT/HCPCS: 36415; 74176; 76705; 80048; 80053; 80076; 83690; 83735; 85025; 85027; 87631; 93041; 94640; 96374; 96375; 97116; 97162; 99285; G0103; G0378; J0131; J2765; Q9963

== ENCOUNTER → 2022-03-01 | Outpatient (CLI) | payer MEDICARE ==
[~2022-03-01] MED LIST changes: +ALLO300T2 PO; +CARV6.25 PO; +COLA100C5 PO; +DICY10CA13 PO; +FERR325T19 PO; +FLUT1BLS6 INH; +MED NOTE; +MIRA1POW3 PO; +ONDA-83 PO; +PANT40TA29 PO; +SPIR-10 PO
== END ==
LOC: M PLAIMG 14:15
PROVIDERS: ATTEND Physician Assistant
DX: M51.35 Other intervertebral disc degeneration, thoracolumbar region (principal); M40.204 Unspecified kyphosis, thoracic region

== ENCOUNTER 2022-03-15 21:14 | Observation (INO) | payer MEDICARE ==
[~2022-03-15] VITALS: Ht 172.7 cm; Wt 49.1 kg
[~2022-03-15 21:14] MED LIST changes: +ALLO300T2 PO; +CARV6.25 PO; +COLA100C5 PO; +DICY10CA13 PO; +FERR325T19 PO; +FLUT1BLS6 INH; -GLUCTAB6 PO; +GLUCTAB7 PO; +MED NOTE; +MIRA1POW3 PO; +ONDA-83 PO; +PANT40TA29 PO; +SPIR-10 PO
[2022-03-15 23:19] LABS: BASO # 0.1 10^3/uL (0.0-0.2); BASO % 0.7 % (0.0-1.0); EOS # 0.2 10^3/uL (0.0-0.5); EOS % 2.6 % (0.0-3.0); HEMATOCRIT 34.6 % (42.0-52.0); HEMOGLOBIN 12.3 g/dl (13.5-17.5); LYMPH # 1.8 10^3/uL (1.5-5.0); LYMPH % 24.3 % (24.0-44.0); MEAN CORPUSCULAR HEMOGLOBIN 34.9 pg (27.0-33.0); MEAN CORPUSCULAR HGB CONC 35.5 g/dl (32.0-36.5); MEAN CORPUSCULAR VOLUME 98.3 fl (80.0-96.0); MONO # 0.7 10^3/uL (0.0-0.8); MONO % 9.3 % (2.0-8.0); NEUTROPHILS # 4.6 10^3/uL (1.5-8.5); NEUTROPHILS % 62.8 % (36.0-66.0); PLATELET COUNT, AUTOMATED 126 10^3/uL (150-450); RED BLOOD COUNT 3.52 10^6/uL (4.30-6.10); WHITE BLOOD COUNT 7.3 10^3/uL (4.0-10.0)
[2022-03-15 23:55] LABS: RSV AMPLIFICATION NEGATIVE (NEGATIVE)
[2022-03-15 23:56] LABS: BILIRUBIN,DIRECT 0.4 MG/DL (0.0-0.2); BILIRUBIN,TOTAL 1.5 MG/DL (0.2-1.0); CALCIUM LEVEL 9.5 MG/DL (8.8-10.2); CREATININE FOR GFR 1.75 MG/DL (0.70-1.30); GLOMERULAR FILTRATION RATE 40.8 (>42); POTASSIUM SERUM 4.1 MEQ/L (3.5-5.1); TOTAL PROTEIN 7.7 GM/DL (6.4-8.2)
[2022-03-16] MEDS ORDERED: ACETAMINOPHEN TAB 650MG DOSE (2X325MG) PO PRN (02:55)
[2022-03-16] MEDS ORDERED: MORPHINE 2 MG/ML 1ML VIAL IV ONE (03:50)
[2022-03-16 04:19] VITALS: BP 110/72
[2022-03-16 04:29] LABS: INR 1.17; PROTHROMBIN TIME 15.3 SECONDS (12.7-14.5)
[2022-03-16 04:30] LABS: PARTIAL THROMBOPLASTIN TIME 32.4 SECONDS (25.9-37.0)
[2022-03-16] MEDS ORDERED: HYDR-4571 PO (04:35)
[2022-03-16] MEDS ORDERED: FAMO20TA PO (04:35)
[2022-03-16] MEDS ORDERED: LOPE1CAP5 PO (04:35)
[2022-03-16] MEDS ORDERED: BACITAB PO (04:35)
[2022-03-16] MEDS ORDERED: LACT20EL PO (04:35)
[2022-03-16] MEDS ORDERED: SPIR-10 PO (04:35)
[2022-03-16] MEDS ORDERED: VITMTA PO (04:35)
[2022-03-16] MEDS ORDERED: GLUCTAB7 PO (04:35)
[2022-03-16] MEDS ORDERED: XIID5DRO OU (04:35)
[2022-03-16] MEDS ORDERED: LISI30TA4 PO (04:35)
[2022-03-16] MEDS ORDERED: B-122500 PO (04:35)
[2022-03-16] MEDS ORDERED: FLON1SPR (04:35)
[2022-03-16] MEDS ORDERED: HOME MED LIST COMPLETE! XX SCH (04:35)
[2022-03-16] MEDS ORDERED: POLYOPD OU (04:35)
[2022-03-16] MEDS ORDERED: CREO3600 PO (04:35)
[2022-03-16] MEDS ORDERED: NORCO, ANEXSIA 5/325MG TABLET (HYDROcodone/ACETAMINOPHEN) PO PRN (04:55)
[2022-03-16] MEDS ORDERED: FLUTICASONE PROP 0.05% NASAL SPRAY 16 GM (FLONASE) PRN (04:55)
[2022-03-16] MEDS ORDERED: DICYCLOMINE 10 MG CAP PO PRN (04:55)
[2022-03-16] MEDS ORDERED: ONDANSETRON 4MG ORAL DISINTEGRATING TAB SL PRN (05:40)
[2022-03-16] MEDS ORDERED: ONDANSETRON 4MG/2ML VIAL IV PRN (05:45)
[2022-03-16] MEDS ORDERED: D5W/0.9% SODIUM CHLORIDE 1,000 ML IV SCH (05:45)
[2022-03-16 05:50] LABS: CALCIUM LEVEL 9.8 MG/DL (8.8-10.2); CREATININE FOR GFR 1.66 MG/DL (0.70-1.30); GLOMERULAR FILTRATION RATE 43.3 (>42); POTASSIUM SERUM 4.2 MEQ/L (3.5-5.1)
[2022-03-16 06:03] LABS: BASO # 0.1 10^3/uL (0.0-0.2); BASO % 0.8 % (0.0-1.0); EOS # 0.2 10^3/uL (0.0-0.5); EOS % 2.1 % (0.0-3.0); HEMATOCRIT 33.5 % (42.0-52.0); HEMOGLOBIN 11.9 g/dl (13.5-17.5); LYMPH # 2.3 10^3/uL (1.5-5.0); MEAN CORPUSCULAR HEMOGLOBIN 34.5 pg (27.0-33.0); MEAN CORPUSCULAR HGB CONC 35.5 g/dl (32.0-36.5); MEAN CORPUSCULAR VOLUME 97.1 fl (80.0-96.0); MONO # 0.9 10^3/uL (0.0-0.8); MONO % 11.3 % (2.0-8.0); NEUTROPHILS # 4.2 10^3/uL (1.5-8.5); NEUTROPHILS % 55.5 % (36.0-66.0); PLATELET COUNT, AUTOMATED 127 10^3/uL (150-450); RED BLOOD COUNT 3.45 10^6/uL (4.30-6.10); WHITE BLOOD COUNT 7.5 10^3/uL (4.0-10.0)
[2022-03-16] MEDS ORDERED: CREON-12 CAPSULE PO SCH (08:00)
[2022-03-16] MEDS ORDERED: BISACODYL 10 MG SUPP PR PRN (08:55)
[2022-03-16] MEDS ORDERED: ACETAMINOPHEN 650 MG SUPP PR PRN (08:55)
[2022-03-16] MEDS ORDERED: ONDANSETRON 4MG ORAL DISINTEGRATING TAB PO PRN (08:55)
[2022-03-16] MEDS ORDERED: MORPHINE 10MG/0.5ML ORAL CONCENTRATE SOLUTION U/D SL PRN (08:55)
[2022-03-16] MEDS ORDERED: LORazepam 2 MG/ML VIAL IV PRN (08:55)
[2022-03-16] MEDS ORDERED: MORPHINE 2 MG/ML 1ML VIAL IV PRN (08:55)
[2022-03-16] MEDS ORDERED: HYOSCYAMINE SULFATE 0.125 MG SUBL TABLET PO PRN (08:55)
[2022-03-16] MEDS ORDERED: LORazepam 1 MG TAB PO PRN (08:55)
[2022-03-16] MEDS ORDERED: SCOPOLAMINE 1MG TRANSDERMAL PATCH TOP PRN (08:55)
[2022-03-16] MEDS ORDERED: ATROPINE SULFATE 1% OP SOLN 2 ML BTL SL PRN (08:55)
[2022-03-16] MEDS ORDERED: PANTOPRAZOLE 40MG TAB (PROTONIX) PO SCH (09:00)
[2022-03-16] MEDS ORDERED: FERROUS SULFATE 325MG TAB PO SCH (09:00)
[2022-03-16] MEDS ORDERED: HEPARIN SOD (PORCINE) 5000UNITS/ML 1ML VIAL/SYRINGE SC SCH (09:00)
[2022-03-16] MEDS ORDERED: CARVedilol 6.25 MG TAB PO SCH (09:00)
[2022-03-16] MEDS ORDERED: LACTULOSE 20 GM/30 ML SYRUP UD PO SCH (09:00)
[2022-03-16] MEDS ORDERED: MORP1SOL5 PO (10:51)
[2022-03-16] MEDS ORDERED: ATIV1TAB10 PO (10:51)
[2022-03-16] MEDS ORDERED: HYOS125TA PO (10:51)
[2022-03-16] MEDS ORDERED: ONDA-83 PO (13:30)
[2022-03-16] MEDS ORDERED: ATORVASTATIN 20 MG TAB PO SCH (21:00)
[2022-03-16] MEDS ORDERED: MULTIVITAMINS/MINERALS THERAP 1 TAB PO SCH (21:00)
[2022-03-16] MEDS ORDERED: FAMOTIDINE 20 MG TAB PO SCH (21:00)
[2022-03-16] MEDS ORDERED: MONTELUKAST 10 MG TAB PO SCH (21:00)
== END 2022-03-16 12:26 | disposition home or self-care (01) ==
LOC: M ED 21:14 → M ED INP 21:15
PROVIDERS: ADMIT Family Medicine; ATTEND Family Medicine
DX: R62.7 Adult failure to thrive (principal); R63.39 Other feeding difficulties; R10.13 Epigastric pain; R41.0 Disorientation, unspecified; R11.2 Nausea with vomiting, unspecified; L89.304 Pressure ulcer of unspecified buttock, stage 4; I12.9 Hypertensive chronic kidney disease with stage 1 through stage 4 chronic kidney disease, or unspecified chronic kidney disease; J45.909 Unspecified asthma, uncomplicated; M10.9 Gout, unspecified; K22.70 Barrett's esophagus without dysplasia; R91.8 Other nonspecific abnormal finding of lung field; K76.6 Portal hypertension; K83.1 Obstruction of bile duct; N18.30 Chronic kidney disease, stage 3 unspecified; M06.9 Rheumatoid arthritis, unspecified; K86.1 Other chronic pancreatitis; K90.0 Celiac disease; Z91.14 Patient's other noncompliance with medication regimen; Z79.899 Other long term (current) drug therapy; Z88.8 Allergy status to other drugs, medicaments and biological substances; Z51.5 Encounter for palliative care; Z66 Do not resuscitate
CPT/HCPCS: 74176; 80048; 80076; 81001; 82140; 83690; 85025; 85610; 85730; 87631; 93005; 96361; 96374; 96375; 99284; G0378; J2270; J2405